=== PATIENT | female | born 1985 | race Caucasian/White ===

== ENCOUNTER 2018-09-07 16:29 | Inpatient (IN) | payer SELFPAY ==
[~2018-09-07 16:29] MED LIST: ISOVUE-370 76%-LOCM 1 ML ONE; KETAMINE 100 MG/ML (5ML VIAL) ONE
[2018-09-07] MEDS ORDERED: Adacel (T-DAP) 0.5 ML VIAL ONE (16:34)
[2018-09-07] MEDS ORDERED: CEFAZOLIN 1 GM VIAL ONE (16:34)
[2018-09-07] MEDS ORDERED: Adenosine 6 MG/2 ML VIAL ONE (16:37)
[2018-09-07] MEDS ORDERED: Succinylcholine Chloride 20 MG/ML 10 ml SYRINGE FS ONE (16:44)
[2018-09-07] MEDS ORDERED: Midazolam HCl 2 mg/2 ml Vial ONE (16:49)
[2018-09-07] MEDS ORDERED: fentaNYL Citrate/PF 2,000 MCG in Sodium Chloride 0.9% 60 ML IV SCH ×2 (16:50→18:16)
[2018-09-07] MEDS ORDERED: Fentanyl 100 MCG/2 ML VIAL ONE ×2 (16:51→17:14)
[2018-09-07 17:07] LABS: Bilirubin Negative (Negative); Blood, Urine Negative (Negative); Clarity CLEAR (Clear); Glucose, Urine (Dipstick) Negative (Negative); Leukocyte Negative (Negative); Nitrite Negative (Negative); Protein, Urine (Dipstick) Negative (Neg-Trace); Specific Gravity, Urine 1.024 (1.002-1.036); Urobilinogen 0.2 mg/dL (0.2-1.0); pH, Urine 5.5 (5.0-9.0)
[2018-09-07 17:10] LABS: Actual Bicarbonate (HCO3a) 12.7 mEq/L (22-28); Analyzer IN Cardio ER; Base Excess (BEa) -15.5 mEq/L (-2.0 to +3.0); CO2 Tension 37.8 mmHg (35.0-45.0); Carboxyhemoglobin (COHb) 0.5 gm% (0.0-3.0); Hemoglobin (Hb) 14.8 g/dL (12.0-16.0); Potassium - ABG Lab 4.28 mmol/L (3.70-5.30)
[2018-09-07 17:11] LABS: Pregnancy Test - Urine (BHCG) Negative (Negative); Pregu Control Background? CLEAR/WHITE (CLR/WHITE); Pregu Control Bar Appear? YES (CONTROL BAR); Specific Gravity 1.024 (1.002-1.036)
[2018-09-07 17:11] LABS: O2 Tension (PaO2) 555.6 mmHg (80.0-100.0); Puncture Site RFA; pH, Arterial 7.14 (7.35-7.45)
[2018-09-07] MEDS ORDERED: Piperacillin/Tazobactam 4.5 GM VIAL ONE (17:13)
[2018-09-07] MEDS ORDERED: Midazolam HCl 5 mg/ml Vial ONE (17:14)
[2018-09-07 17:16] LABS: Amphetamine Detected (NotDetected); Barbiturates Screen Not Detected (NotDetected); Benzodiazepine Screen Not Detected (NotDetected); Cocaine Metabolite Screen Not Detected (NotDetected); Medtox Control Line Valid? VALID (VALID); Medtox Reader # READER 4; Methadone Not Detected (NotDetected); Methamphetamine Detected (NotDetected); Opiate Screen Not Detected (NotDetected); Oxycodone Screen Not Detected (NotDetected); Phencyclidine (PCP) Not Detected (NotDetected); THC/Cannabinoid Screen Not Detected (NotDetected); Tricyclic Screen Not Detected (NotDetected)
[2018-09-07 17:26] LABS: INR-International Normal Ratio 1.2; Prothrombin Time 15.4 SEC (12.0-14.7)
[2018-09-07 17:27] LABS: PTT 34.5 SEC (22.9-36.1)
[2018-09-07 17:28] LABS: Hemoglobin 14.1 g/dL (12.0-16.0); Mean Corpuscular HGB CONC 32.4 g/dL (32.0-36.0); Mean Corpuscular Hemoglobin 30.1 pg (27.0-31.0); Mean Corpuscular Volume 92.9 fL (78.0-98.0); Mean Platelet Volume 8.6 fL (7.4-10.4); Platelet Count 302 thou/uL (130-400); RBC Distribution Width 12.7 % (11.5-14.5); Red Blood Cell (RBC) Count 4.69 mill/uL (4.20-5.40)
[2018-09-07] MEDS ORDERED: Norepinephrine 8 MG/0.9% NS 250 ML ONE (17:37)
[2018-09-07 17:38] LABS: ALT (SGPT) 24 U/L (8-55); AST (SGOT) 64 U/L (5-34); Albumin 3.7 g/dL (3.5-5.0); Alkaline Phosphatase 113 U/L (40-150); Anion Gap 22 mmol/L (10-20); BUN (Urea Nitrogen) 20 mg/dL (7.0-18.7); Bilirubin, Total 0.2 mg/dL (0.2-1.2); Calc. Creatinine Clearance 0 mL/min (70-130); Calcium 8.8 mg/dL (7.8-10.44); Carbon Dioxide 12 mmol/L (22-29); Chloride 108 mmol/L (98-107); Estimated GFR-MDRD 35; Globulin 2.9 g/dL (2.4-3.5); Glucose 246 mg/dL (70-105); Potassium 4.4 mmol/L (3.5-5.1); Protein, Total 6.6 g/dL (6.0-8.3); Sodium 138 mmol/L (136-145)
[2018-09-07] MEDS ORDERED: Sodium Bicarbonate 2.5 MEQ/5 ML VIAL ONE (17:40)
[2018-09-07] MEDS ORDERED: Calcium Chloride 1 GM/10 ML Abboject SYRINGE ONE (17:40)
[2018-09-07] MEDS ORDERED: Sodium Bicarb 50 MEQ/50 ML Abboject 8.4% SYRINGE ONE ×3 (17:41→17:42)
[2018-09-07 17:42] LABS: Actual Bicarbonate (HCO3a) 15.8 mEq/L (22-28); Analyzer IN Cardio ER; Base Excess (BEa) -12.1 mEq/L (-2.0 to +3.0); CO2 Tension 43.1 mmHg (35.0-45.0); Calcium, Ionized 1.19 mmol/L (1.12-1.30); Carboxyhemoglobin (COHb) 0.3 gm% (0.0-3.0); Hemoglobin (Hb) 13.9 g/dL (12.0-16.0); Potassium - ABG Lab 3.73 mmol/L (3.70-5.30)
[2018-09-07 17:43] LABS: O2 Tension (PaO2) 600.4 mmHg (80.0-100.0); Puncture Site RFA; pH, Arterial 7.18 (7.35-7.45)
[2018-09-07 17:44] LABS: ALV-art Gradient 58.725 (0-20)
[2018-09-07 17:50] LABS: Band 11 % (5-11); Eosinophils 2 % (0-10); Lymphocytes 14 % (21-51); MDiff Complete? YES; Metamyelocyte 3 % (0-0); Monocytes 3 % (0-10); Myelocyte 1 % (0-0); Neutrophil 66 % (42-75); PLT Morphology Comment Appears Adequate
[2018-09-07 17:52] LABS: Acetaminophen Less than 6.0 mcg/mL (10.0-30.0); Alcohol Less than 10 mg/dL (Less than 10); Salicylate Less than 8.0 mg/dL (15.0-30.0)
[2018-09-07] MEDS ORDERED: Dextrose 5% in Water 1,000 ML IV PRN (18:09)
[2018-09-07] MEDS ORDERED: Dextrose 50% Abboject 50 ML SYRINGE SLOW IVP PRN (18:09)
[2018-09-07] MEDS ORDERED: Ventilator Sedation Protocol 1 EACH FS ONE (18:14)
[2018-09-07] MEDS ORDERED: Propofol BOLUS 1,000 MG/100 ML VIAL IV PRN (18:16)
[2018-09-07] MEDS ORDERED: Fentanyl BOLUS 250 ML IVPB PRN (18:16)
[2018-09-07] MEDS ORDERED: DISCONTINUE PREVIOUS NARCOTIC PAIN MEDICATIONS AND BENZODIAZEPINES FS SCH (18:16)
[2018-09-07] MEDS ORDERED: Lorazepam 2 MG/ML VIAL SLOW IVP PRN (18:16)
[2018-09-07] MEDS ORDERED: Sodium Chloride 0.9% 50 ML ONE ×2 (18:19→18:41)
[2018-09-07] MEDS ORDERED: Heparin 5,000 UNITS/ML VIAL ONE (18:26)
[2018-09-07] MEDS ORDERED: Morphine 2 MG/ML SYRINGE SLOW IVP PRN (18:30)
[2018-09-07] MEDS ORDERED: Papaverine 60 MG/2 ML VIAL ONE (18:46)
[2018-09-07 18:47] LABS: Lactic Acid 12.4 mmol/L (0.5-2.2)
[2018-09-07] MEDS ORDERED: Sodium Chloride 0.9% 20 ML ONE (18:48)
--- NOTE | 2018-09-07 18:50 | RAD ---
ONE VIEW CHEST: 09/07/18 HISTORY: Patient was attacked by multiple dogs. COMPARISON: None. FINDINGS: Portable supine chest radiograph demonstrates an endotracheal tube just beyond the level of the clavi cles. There is a left sided central venous catheter with the distal tip projecting over the expected region of the superior vena cava. Normal cardiac silhouette. Pulmonary vessels and hilum are normal. Costophrenic angles are clear. Pulmonary vessels and hilum are normal. Costophrenic angles are clear. No definite consolidation or masses. No evidence of pneumothorax on the supine projection. However, there is evidence of subcu air along the right chest wall and right axilla. Possibility of pneumothor ax in the right lung cannot be excluded. IMPRESSION: 1. Lines and tubes as above. 2. Questionable right sided pneumothorax given the presence of subcutaneous emphysema in the rig ht hemithorax. POS: [facility]
[2018-09-07 19:08] LABS: Troponin I Less than 0.010 ng/mL (< 0.028)
[2018-09-07 19:12] LABS: CKMB 30.6 ng/mL (0-6.6)
--- NOTE | 2018-09-07 19:16 | RAD ---
TWO VIEWS OF THE RIGHT FOREARM 09/07/18 COMPARISON: None. HISTORY: Right forearm trauma with pain. FINDINGS: Two views of the right forearm shows a complex laceration involving the forearm. There is no underlyi ng fracture or dislocation. No significant radiopaque foreign body is seen. IMPRESSION: No evidence of acute osseous abnormality. POS: [facility]
[2018-09-07] MEDS ORDERED: Bacitracin Zinc Ointment 30 gm TUBE ONE (19:49)
--- NOTE | 2018-09-07 20:30 | CT ---
CHEST CT WITH CONTRAST ABDOMEN CT WITH CONTRAST PELVIC CT WITH CONTRAST CT ANGIOGRAM OF THE RIGHT UPPER EXTREMITY 09/07/18 HISTORY: Patient was bitten by multiple dogs. COMPARISON: None. TECHNIQUE: CT angiogram of the right upper extremity is performed in the axial plane. Three dimensional reformat florentino images are submitted for interpretation. Postcontrast chest, abdomen and pelvic CT were also performed. FINDINGS: There is an endotracheal tube terminating in the trachea. The nasogastric tube terminates in the left upper quadrant. Heart size is normal. No significant pericardial fluid. The thoracic and abdominal a delia have a normal caliber. No periaortic fat stranding. There are dependent atelectatic changes in the lung parenchyma. Trachea and central bronchi are paten t. No pneumothorax or osseous abnormalities. There is extensive subcutaneous air in the right hemithorax. ABDOMEN CT: There is appropriate arterial phase imaging of the liver, spleen, pancreas and adrenal glands. Symmet mike enhancement of the kidneys. No mesenteric mass, lymphadenopathy, free air or free fluid. No evidence of bowel obstruction. Normal caliber appendix. Unremarkable colon. PELVIC CT: The uterus and adnexal structures are unremarkable. Rodriguez catheter is noted in the urinary bladder. S mall amount of fluid in the right hemipelvis, likely physiologic. There is no posttraumatic change with regard to the bony thorax or bony pelvis. CT ANGIOGRAM: There is appropriate contrast opacification of the right subclavian artery, axillary artery and proxi mal most brachial artery. Subsequent evaluation of the mid to distal brachial artery as well as the r adial and ulnar artery is markedly limited due to timing of bolus, subcutaneous emphysema, soft tissu e swelling/hematoma, venous contamination and patient movement. There does appear to be some decreased and absent enhancement involving segments of the radial artery . Consider conventional angiography to better evaluate the entire right upper extremity arterial syst em. IMPRESSION: 1. No posttraumatic change in the abdomen or pelvis. 2. Extensive subcutaneous emphysema of the right chest and right upper extremity secondary to in jury and wounds. 3. Suboptimal right upper extremity arteriogram. Conventional angiography is recommended. 4. Results of the CT angiogram discussed with Dr. Siegel, 09/07/18 at 6:27 p.m. Code CR POS: [facility]
[2018-09-07] MEDS: Sodium Bicarbonate 150 MEQ in Dextrose 5% in Water 1,000 ML IV SCH (21:00)
[2018-09-07 21:49] LABS: Actual Bicarbonate (HCO3a) 22.9 mEq/L (22-28); Analyzer IN Cardio ER; Base Excess (BEa) -2.4 mEq/L (-2.0 to +3.0); CO2 Tension 41.5 mmHg (35.0-45.0); Calcium, Ionized 1.07 mmol/L (1.12-1.30); Carboxyhemoglobin (COHb) 0.3 gm% (0.0-3.0); Hemoglobin (Hb) 12.5 g/dL (12.0-16.0); O2 Tension (PaO2) 212.5 mmHg (80.0-100.0); Potassium - ABG Lab 3.02 mmol/L (3.70-5.30); pH, Arterial 7.36 (7.35-7.45)
--- NOTE | 2018-09-07 21:49 | HP ---
DATE OF ADMISSION: 09/07/2018 HISTORY OF PRESENT ILLNESS: A 33-year-old woman was mauled by pack of dogs this afternoon. The patient suffered multiple complex lacerations and puncture wounds. Apparently, at least one of the dogs was put down in order to extricate the patient from the scene. The patient was brought by ambulance to [facility] as a level 1 trauma activation. She was hypotensive and tachycardic. Blood products have been started in field and continued en route to the emergency department. The patient arrived with a Sobeida coma scale of E4 M6 V4. She was quite agitated and screaming in pain and difficulty to console. She had received some ketamine twice with minimal effect. Decision was made therefore to electively intubate the patient to manage her airway and facilitate timely workup. She does indeed have an extensive amount of injuries about her with profound blood loss and mid extensive soft tissue loss. Prior to intubation, we were able to garnish some history. PAST MEDICAL HISTORY: Pertinent for chronic supraventricular tachycardia. PAST SURGICAL HISTORY: She denies any invasive surgeries at bedside. She had some noninvasive surgery relating to her SVT, I suspect that was probably a cardioversion. SOCIAL HISTORY: She admits to heavy ethanol usage. She also admits to occasional use of marijuana. She indulges in illicit drugs including methamphetamine. FAMILY HISTORY: She denies any family history of diabetes mellitus, hypertension, heart disease or cancer. PREHOSPITAL MEDICATIONS: None. ALLERGIES: Patient denies any known drug allergies. REVIEW OF SYSTEMS: As stated in past medical history and chief complaint. PHYSICAL EXAMINATION: GENERAL: This reveals a 33-year-old woman who appears older than her stated age. She is otherwise in acute distress secondary to severe pain, especially with her right upper extremity. VITAL SIGNS: Initial vital signs include blood pressure 60/40, pulse is 144, respiratory rate is 33, oxygen saturation 97% on room air, pain rated at 10/10. The patient had received 2 units of O negative blood prior to arrival and a third unit of O negative blood was being transfused during this evaluation. HEENT: Examination reveals normocephalic and atraumatic. Pupils are equal, round, reactive to light and accommodation. She has multiple lacerations about her neck bilaterally with some puncture wounds. No active bleeding noted. Trachea is midline. There is no subcutaneous emphysema present. No carotid bruits were auscultated. Tympanic membranes are visualized. No hemotympanum is present. Midface stable. No gross deformities or step-offs are present. Chest wall is stable. HEART: Reveals regular rate with sinus tachycardia. No murmurs or gallops auscultated. LUNGS: Clear to auscultation bilaterally. Her breathing is regular and unlabored. ABDOMEN: Soft, nontender, nondistended. Liver and spleen are nonpalpable below costal margin. PELVIS: Stable. No gross deformities or step-offs are present. EXTREMITIES: Reveals thready, but palpable bilateral pedal and radial pulses. Patient had extensive amount of puncture wounds and lacerations about the left upper extremity and back. The right upper extremity includes very complex full thickness laceration involving the right antecubital fossa with extensive soft tissue loss. There is also a deep laceration to the right elbow extending to the distal humerus. The patient had scattered areas of abrasion involving both upper and lower extremities, back and both flank. She has multiple lacerations and puncture wounds involving the bilateral lower extremities. MUSCULOSKELETAL: Examination reveals 5/5 muscle strength in left upper and bilateral lower extremities. Range of motion about the right upper extremity was restricted due to painful deformities. Whereas the patient was able to move right upper arm, she was unable to use fingers. In fact, all the fingers were fixed in a flexure position. Cervical spine was nontender to palpation, active or passive range of motion. Thoracic and lumbar spine was nontender to palpation. Clearly there are no bony step-offs involving the cervical, thoracic or lumbar spine. LABORATORY DATA: Pertinent laboratory findings today includes CBC with 44,000 white blood cells, hemoglobin 14.1, hematocrit 43.6, platelet count is 302,000. Differential counts as follows, 66% segmented neutrophils, 11 bands, 14 lymphocytes, 3 monocytes and 2 eosinophils. PTT and INR noted at 34.5 seconds and 1.2 respectively. Metabolic profile: Sodium 138, potassium 4.4, chloride is 108, bicarbonate is 12, anion gap is 22, BUN is 20, creatinine is 1.71, glucose is 246, total bilirubin is 0.2, AST and ALT noted at 64 and 24 respectively. Serum cortisol level is 26.6. Urine toxicology screen is positive for amphetamines and methamphetamines. Arterial blood gas which was obtained immediately post-intubation is pertinent for pH 7.14, pCO2 38, pO2 556, oxygen saturation 99%, base excess negative 15.5, ionized calcium 1.20. IMPRESSION: 1. Multiple dog bite wounds. 2. Interval innumerable lacerations and puncture wounds involving the neck bilaterally, bilateral arm and legs, back and both flanks. 3. Complex right forearm antecubital fossa full thickness laceration with likely neurovascular injury. 4. Acute metabolic acidosis. 5. Acute kidney injury likely secondary to acute distributive shock and concomitant crush injury related to acute tubular necrosis. 6. Acute septic shock PLAN: 1. Consultation with orthopedic hand surgery as well as a Cardiovascular Surgery with regards to the right upper extremity complex injuries. 2. Patient will be taken to the operating room for washout and closure of multiple lacerations and puncture wounds. 3. Continue with aggressive fluid resuscitation. Monitoring the urinary output as endpoint of resuscitation. 4. Continue with full mechanical ventilator support until the patient is hemodynamically stable. Total critical care time is 85 minutes. MTDD
[2018-09-07 21:53] LABS: ALV-art Gradient 92.125 (0-20); Puncture Site LFA
--- NOTE | 2018-09-07 22:14 | CON ---
DATE OF CONSULTATION: 09/07/2018 REQUESTING PHYSICIAN: Fredo Taylor M.D. CHIEF COMPLAINT: Dog mauling. HISTORY OF PRESENT ILLNESS: The patient is a 33-year-old woman, intubated and resuscitated following a dog mauling. She has multiple bites on her extremities with extensive bites involving the right u pper extremity. It is possible to Doppler a pulse down to about the antecubital level where a very l arge wound was, but it was not possible to Doppler pulses beyond that. Dr. Taylor requested that I evaluate her with respect to possible vascular injury. Past medical history, family history, social history and review of systems are unobtainable. On exam, she is in the operating room intubated and under anesthesia. Her blood pressure has come up from the initial blood pressure in the 80s in the emergency room. She is covered with dried blood. She has multiple small puncture wounds involving all 4 extremities with extensive soft tissue defect going down to the bone on the volar aspect of the right forearm. I am not able to palpate radial pu lses. I am able to palpate dorsalis pedis pulses. CT angiography does not clearly demonstrate it, but would appear to show intact vasculature in spasm. IMPRESSION AND RECOMMENDATIONS: Extensive penetrating trauma from a dog mauling. Certainly at risk for vascular injury. I will explore the brachial vessels with Dr. Taylor during his exploration of the wound.
[2018-09-07] MEDS ORDERED: Calcium Chloride 1 GM/10 ML Abboject SYRINGE IVP SCH (22:15)
[2018-09-07] MEDS: Ondansetron PF 4 MG/2 ML Vial IVP PRN (22:32)
[2018-09-07] MEDS: Propofol 1,000 MG/100 ML VIAL IV PRN (23:00)
[2018-09-08] MEDS: Piperacillin/Tazobactam 4.5 GM in Sodium Chloride 0.9% 100 ML IVPB SCH ×4 (00:03→18:50)
[2018-09-08] MEDS: Oxazepam 10 MG CAP PO SCH ×2 (00:12→05:13)
[2018-09-08] MEDS: Insulin Regular 300 UNITS/3 ML VIAL SC PRN ×3 (00:35→17:10)
--- NOTE | 2018-09-08 01:27 | OP ---
DATE OF PROCEDURE: 09/07/2018 PROCEDURE PERFORMED: Right antecubital exploration of the brachial artery. PREOPERATIVE DIAGNOSIS: Extensive bite wounds to the right upper extremity, status post dog mauling. POSTOPERATIVE DIAGNOSIS: Extensive bite wounds to the right upper extremity, status post dog mauling . SURGEON: Dr. Blue. DRAPERY HANGER: Fredo Taylor MD ANESTHESIA: General endotracheal anesthesia. INDICATIONS: The patient is a 33-year-old woman attacked by dogs with multiple bite wounds with exte nsive wounds involving right upper extremity including deep extensive wounds at the antecubital and m id forearm level with an inability to identify pulses at the wrist or hand. FINDINGS: No apparent injury to the distal brachial or proximal or mid radial or ulnar arteries. NARRATIVE REPORT: The patient was transported emergently to the operating room and placed in supine position on the operating table. Additional examination was undertaken of the anesthetized patient b efore prepping and draping her extremities. Dr. Taylor and I explored the right antecubital wound. Very small tubular structure was encountered that at first, I thought represented an antecubital ve in, although it seemed too deep to represent that. This was followed proximally using combination of sharp and blunt dissection, it could be appreciated that this was the exposed brachial artery within the external caliber of only about 2.5 or 3 mm in diameter overlying it were still attached pr oximally. The brachial artery clearly had a pulse. There was no visible bleeding from it as one wit h distally, the pulse was more red was appreciated, although somewhat faint. The radial and ulnar ar teries were exposed in the process of debriding devitalized muscle. There was no bleeding coming fro m those vessels. A papaverine soaked sponge was applied to the wound while other wounds were explore d, debrided and irrigated. Attention was returned to the brachial artery and the branch vessels had easily palpable pulses in it. A faint radial pulse could be identified with Doppler at the wrist and when a 22 gauge needle was used to josefa each of the fingertips, they bled appropriately.
--- NOTE | 2018-09-08 01:30 | OP ---
DATE OF PROCEDURE: 09/07/2018 PREOPERATIVE DIAGNOSIS: Multiple dog bites in upper and lower extremities and facial. POSTOPERATIVE DIAGNOSIS: Multiple dog bites in upper and lower extremities and facial. PROCEDURE: Closure of multiple last debridement, wound washout, pulse irrigation and debridement of fatty tissue, layered closures and superficial closures of multiple lacerations, left and right lower extremity, left upper extremity and facial (Dr. Taylor performed washout and closure evaluations r ight upper extremity lacerations severe upper extremity injury). Left leg lacerations total 29 cm, l eft arm 53 cm, right leg 25 cm, facial 23 cm total lacerations. Note, deep laceration left preauricu lar down to the masseter, otherwise facial submental lacerations and into the subcu, submental lacera tion deeper. Deep lacerations left upper extremity laterally. Bilateral lower extremities down deep to the fascia, but not a vascular territory. General anesthesia. Blood transfused 2 units. DESCRIPTION OF PROCEDURE: The patient taken to the operating room where under general anesthesia, Dr Holden Taylor is taken to OR and Sighaileyhorst evaluated the right upper extremity while worked on the lef t lower extremity, right lower extremity, left upper extremity and facial. I began in the left upper extremity while she was cleansing the wound, prepping this with Betadine and draping in the routine fashion. Pulse irrigation used to rinse all irrigations in upper arm and forearm. Once these was th oroughly irrigated, some of the larger lacerations were debrided fatty tissue, devitalized tissue and then subcutaneous tissues of the large lacerations deep or approximated with interrupted subdermal 4 -0 Monocryl and then all skin incisions approximated with niko. I then turned my attention to kurt kenny in the left lower extremity and prepared that with Betadine and draped in routine fashion. Th joe multiple lacerations above and below the knee anterior and posterior were pulse irrigated and als o devitalized subcutaneous tissue debrided sharply, skin debrided sharply. Hemostasis gained with th e cautery. Pulse irrigation used to thoroughly irrigate all wounds and all wounds approximated by ap proximating the deeper wounds with interrupted sutures of 4-0 Monocryl and skin with niko. I then turned my attention to the right lower extremity where likewise devitalized subcutaneous tissue and skin debrided sharply. Pulse irrigation performed thoroughly and subcutaneous tissues with 3-0 Monoc ryl used to close the deeper lacerations and niko used to close all lacerations. I then turned my attention to the face, most of her problems are with left face There is a complex m ultiple lacerations preauricular left infraorbital, eyelid, left facial and submental these were all pulse irrigated after gently cleaning with Betadine. The eyelid laceration, of course, was not pulse irrigated, above was cleansed with Betadine and then the infraorbital laceration closed with continu ous suture of 6-0 Prolene, approximating the skin. The preauricular area was deep down masseter, thi s was debrided and devitalized subcutaneous tissue. Hemostasis gained with the cautery. Fascia appr oximated with 3-0 Monocryl. Subcutaneous tissue closed with 3-0 Monocryl. Skin approximated with 6- 0 Prolene. Submental laceration was likewise debrided and approximated with 6-0 Prolene. The patien t tolerated the procedure well. Sterile dressings applied. Antibiotic ointment applied to the facia l lacerations.
[2018-09-08] MEDS: Sodium Bicarbonate 150 MEQ in Dextrose 5% in Water 1,000 ML IV SCH ×2 (01:42→10:27)
[2018-09-08 04:53] LABS: Lactic Acid 3.2 mmol/L (0.5-2.2)
[2018-09-08 05:07] LABS: ALT (SGPT) 50 U/L (8-55); AST (SGOT) 177 U/L (5-34); Albumin 2.8 g/dL (3.5-5.0); Alkaline Phosphatase 50 U/L (40-150); Anion Gap 9 mmol/L (10-20); BUN (Urea Nitrogen) 23 mg/dL (7.0-18.7); Bilirubin, Total 0.6 mg/dL (0.2-1.2); Calc. Creatinine Clearance 72 mL/min (70-130); Calcium 8.7 mg/dL (7.8-10.44); Carbon Dioxide 31 mmol/L (22-29); Chloride 105 mmol/L (98-107); Estimated GFR-MDRD 56; Globulin 1.9 g/dL (2.4-3.5); Glucose 174 mg/dL (70-105); Potassium 3.3 mmol/L (3.5-5.1); Protein, Total 4.7 g/dL (6.0-8.3); Sodium 142 mmol/L (136-145)
[2018-09-08] MEDS: Propofol 1,000 MG/100 ML VIAL IV PRN (05:13)
[2018-09-08 06:10] LABS: CK (CPK) 9013 U/L (29-168)
[2018-09-08 06:39] LABS: Actual Bicarbonate (HCO3a) 28.6 mEq/L (22-28); Analyzer IN Cardio ER; Base Excess (BEa) 5.2 mEq/L (-2.0 to +3.0); CO2 Tension 37.4 mmHg (35.0-45.0); Calcium, Ionized 1.08 mmol/L (1.12-1.30); Carboxyhemoglobin (COHb) 0.3 gm% (0.0-3.0); Hemoglobin (Hb) 11.6 g/dL (12.0-16.0); O2 Tension (PaO2) 141.8 mmHg (80.0-100.0); Potassium - ABG Lab 3.33 mmol/L (3.70-5.30)
[2018-09-08 06:44] LABS: Puncture Site LF
[2018-09-08] MEDS ORDERED: Potassium Chloride 30 MEQ in Premix Bag 1 BAG IVPB SCH (06:45)
[2018-09-08 06:57] LABS: Hemoglobin 11.4 g/dL (12.0-16.0); Mean Corpuscular HGB CONC 32.8 g/dL (32.0-36.0); Mean Corpuscular Hemoglobin 29.5 pg (27.0-31.0); Mean Corpuscular Volume 89.7 fL (78.0-98.0); Mean Platelet Volume 9.1 fL (7.4-10.4); Platelet Count 140 thou/uL (130-400); Red Blood Cell (RBC) Count 3.88 mill/uL (4.20-5.40); White Blood Cell (WBC) Count 12.1 thou/uL (4.8-10.8)
[2018-09-08] MEDS ORDERED: Potassium Chloride 30 MEQ, Admixture Fee 1 EACH in Sodium Chloride 0.9% 250 ML 250 ML IV SCH (07:00)
[2018-09-08 08:26] LABS: Band 27 % (5-11); Lymphocytes 8 % (21-51); MDiff Complete? YES; Monocytes 4 % (0-10); Neutrophil 60 % (42-75); PLT Morphology Comment Appears Adequate; Reactive Lymphocytes 1 % (0-10)
[2018-09-08] MEDS: Folic Acid 1 MG TAB PO SCH (09:29)
[2018-09-08] MEDS: Enoxaparin Sodium 40 MG/0.4 ML SYRINGE SC SCH ×2 (09:31→11:38)
[2018-09-08] MEDS ORDERED: Acetaminophen 500 MG TAB PO PRN (09:44)
[2018-09-08] MEDS ORDERED: Naloxone HCl 0.4 mg/ml Vial IV PRN (09:46)
[2018-09-08] MEDS ORDERED: diphenhydrAMINE 50 MG/ML VIAL IVP PRN (09:46)
[2018-09-08] MEDS ORDERED: diphenhydrAMINE 25 MG CAP PO PRN (09:46)
[2018-09-08] MEDS ORDERED: diphenhydrAMINE 50 MG/ML VIAL IM PRN (09:46)
[2018-09-08] MEDS ORDERED: Communication Order-Pharmacy FS SCH (10:00)
[2018-09-08] MEDS: Ketorolac Tromethamine 30 MG/ML VIAL IVP SCH ×3 (11:25→23:40)
[2018-09-08] MEDS ORDERED: PROPOFOL 200 MG/20 ML VIAL ONE (11:29)
[2018-09-08] MEDS ORDERED: ePHEDrine/0.9% NaCl/PF SYRINGE 50 mg/10 ml ONE (11:29)
[2018-09-08] MEDS ORDERED: PHENYLEPHRINE-NS 100 MCG/ML 10 ML SYRINGE ONE (11:29)
[2018-09-08] MEDS ORDERED: Succinylcholine Chloride 20 MG/ML 10 ml SYRINGE FS ONE (11:29)
[2018-09-08] MEDS ORDERED: Calcium Chloride 1 GM/10 ML Abboject SYRINGE ONE (11:29)
[2018-09-08] MEDS ORDERED: Lidocaine 1% PF 5 ML VIAL ONE (11:29)
--- NOTE | 2018-09-08 11:38 | OP ---
DATE OF SURGERY: 09/07/2018 PREOPERATIVE DIAGNOSES: 1. Right forearm deep and right arm submuscular multiple dog bite wounds. 2. Vascular compromise with diminished to absent radial pulse. 3. Marked amount of devitalized wound with the dorsal wound showing dirt contamination and the xavier r wound showing primarily devascularization. Exposed bone was seen, but no fracture throughout prima ry injury zone, which was greatest in the palmar aspect from the antecubital fossa to approximately 5 cm distal to the radial artery and ulnar artery bifurcation. This surgery performed, then right for earm debridement deep down to the antecubital bone to right median and ulnar nerve neuroplasty. 4. Right arm debridement. 5. Pulse irrigation 10 liters with 50,000 units of bacitracin per liter of antibiotics. almos t 15 mL of total devitalized muscle from the forearm and approximately 2 mL from the arm. ESTIMATED BLOOD LOSS: 150 mL. TOURNIQUET TIME: None. ANESTHESIA: General endotracheal anesthesia. INDICATIONS: The patient came in as level 1 trauma to our hospital reportedly from the [place] [address] region in [place]. reported that she was bitten by multiple dogs traveling in a al ck, was evacuated by helicopter, and after evaluation with Dr. Siegel of the general surgery trauma te am director, the patient had evidence of large amount of open devitalized wounds, so we consulted alan walker surgeon. I evaluated her and saw that she had a clenched fist on the right side, where she had jazmine mendous amount of damage to the palmar and dorsal radial aspect of the forearm and the posterior aspe ct of the arm. Her digits were completely flexed. She says she had also dog bite wounds on the left upper extremity, both lower extremities, and face. These were managed by General Surgery and General Surgery Trauma and I did not examine or treat them . She then went to the operating room with no family to consent, as an emergency consent patient. DESCRIPTION OF PROCEDURE: As part of a 4 prep and drape scene, along with the vascular surgeon who I called because the patient had no Doppler pulse, but did have trace pulse on the CTA. Once the [facility] t upper extremity was prepped and draped, I then extended the most proximal aspect of the transverse antecubital fossa procedure medially and then directly anteriorly for 10 cm to allow visualization of the brachial artery prior to this bifurcation. Then, it was easy to discern it distally as some of the muscle devitalized. The surface was gone, it was clear that the patient had lost a marked amount of muscle mass and some exposed tendons from the palmar aspect including palmaris longus, flexor car pal ulnaris, flexor carpi radialis, and flexor digitorum superficialis and deep. We thus extended th e incision palmar and dorsal, especially with dorsal and radial wrist at the ulnar base of the radial nerve posterior interosseous area and began to individually inspect the muscles. We found devitaliz ed muscle from extensor carpi radialis longus and brevis just distal to their origin, the first and s econd dorsal compartment muscles and extensor pollicis longus through the dorsal incision where we ex tended. Through palmar incision, we were able to dissect completely the median nerve and ulnar nerve neuroplasty and we found that the flexor carpi ulnaris, flexor carpi radialis, flexor pollicis longu s, flexor digitorum superficialis, all had muscle belly damage and at least 1-2 tendons detached, so these were excised and debrided until we reached what appeared to be viable contractile muscles witho ut the tourniquet deflated. We obtained hemostasis. Then, we made our first irrigation after all th joe debridements were completed using the following techniques: 1. Excisional. 2. Depth was down to not including bone, we saw no teeth reina in the bone and no radiograph abnorma lity. 3. The instruments used include nearly everything on the set but highlighted would be 11-blade knife , [place] blade, [place], aponte elevator, tenotomy scissors, DeBakey scissors, and the patient then had the irrigation done when all the nonviable muscle was gone. A total of 10 liters were given, 5 i nitially and then once we finished debridement in the arm where we packed the wound with normal salin e-soaked sterile gauze, another 5 were given at primary forearm level. Vascular surgeon finished exploration of the brachial arteries bifurcation into the ulna more proxima l and radial more distal, and then I followed this down to the anterior interosseous where we had a b leeder from a branch which we covered with a Ligaclip. Then, we noticed that the radial pulse have r eturned out to the level of the closure of the incision, which I made and here it began to diminish e renata on the Doppler, but this was well passed 5 cm distal to the most proximal aspect of the actual do g bite wound. Thus with pink fingers and this time, we felt there was at least some nerve circulatio n at this time and we prepared the patient for wound coverage without closure. We elected not to use a VAC dressing, because there was too much neurovascular bundle exposed, especially artery and tenuo us situation. We also covered the wound with normal saline soaked gauze, dry gauze, ABDs, Kerlix, an d kept at 90 degrees because it was here that we actually felt more often than not, a pulse. Once the dressing was applied, we placed a well measured and appropriate sugar-tong splint with the e lbow in neutral and the patient left the operating room without evidence of anesthetic or operative c omplications.
[2018-09-08] MEDS: HYDROmorphone 10 mg/100 ml CADD IVPB PRN (11:46)
[2018-09-08] MEDS ORDERED: Ketorolac Tromethamine 10 MG TAB PO SCH (12:00)
[2018-09-08] MEDS: Ondansetron PF 4 MG/2 ML Vial IVP PRN (15:03)
[2018-09-08] MEDS: Dextrose 5 %-0.45 % NaCl 1,000 ML IV SCH ×2 (15:35→23:47)
[2018-09-08] MEDS: Promethazine HCl 25 MG/ML VIAL IM PRN (15:43)
--- NOTE | 2018-09-08 16:23 | PRG ---
DATE OF SERVICE: 09/08/2018 HISTORY: A 33-year-old woman who was mauled by a pack of dogs yesterday, suffered multiple bite wounds. She is postoperative day #1, status post excisional debridement and repair of the multiple bite wounds. SUBJECTIVE: This morning, she is on full mechanical ventilator support. She has required aggressive resuscitation overnight. She presented with severe lactic acidosis. When sedation was decreased, the patient moved all extremities and followed commands with a Douglas coma scale of 11T. OBJECTIVE: VITAL SIGNS: This morning, on no vasopressor support was noted at 101/65, pulse 111, respiratory rate 14, temperature 99.7 degrees Fahrenheit, oxygen saturation 100% on FIO2 of 40%. HEENT: Pupils equal, round, and reactive to light bilaterally. HEART: Reveals a regular rate with sinus tachycardia. No murmurs or gallops auscultated. LUNGS: Clear to auscultation bilaterally. Breathing is regular and unlabored. ABDOMEN: Soft, nontender, nondistended. Bowel sounds in all 4 quadrants are normoactive. EXTREMITIES: Reveals 2+ left radial and bilateral pedal pulses present. Right radial pulses present by Doppler. NEUROLOGIC: Reveals no focal deficits present. LABORATORY FINDINGS: Today includes a CBC with 12,100 white blood cells in contrast to 44,000 yesterday. Hemoglobin and hematocrit are stable at 11.4 and 34.8 respectively. Platelet count is 140,000. Differential counts as follows: 60% segmented neutrophils, 27 bands, 8 lymphocytes, and 4 monocytes. Arterial blood gas today pH 7.50, pCO2 of 37, pO2 142, base excess is 5.2. Ionized calcium is 1.08. Metabolic Profile: Sodium 142, potassium is 3.3, chloride is 105, bicarbonate is 31, BUN is 23, creatinine is 1.13, glucose is 174. Lactic acid is 3.2. This is in contrast to 12.4 yesterday. CPK is 9013, this is in contrast to 2734 yesterday. IMPRESSION: 1. Post-injury day #1, status post multiple dog bite wounds. 2. Significantly resolving acute lactic acidosis. 4. Acute posttraumatic respiratory failure, improving. 5. Acute hypokalemia. 6. Resolving acute kidney injury. 7. Stable crush injury with rhabdomyolysis PLAN: 1. The patient was weaned and successfully extubated. 2. Correct abnormal electrolytes. 3. Initiate physical and occupational therapy. 4. We will discontinue bicarbonate infusion but continue with IV fluids, monitor urinary output as point of resuscitation. This patient is still at risk for ongoing rhabdomyolysis secondary to crush injury from this multiple bite wounds as there might still be some residual devitalized muscle present. 5. We will continue with broad spectrum antibiotic therapy. 6. The patient is likely to return to the operating room within the next 24 hours for further evaluation. Above findings and plan discussed with the patient who indicates understanding of information given. I have answered her questions Total critical care time is 45 minutes. MTDD
[2018-09-08] MEDS ORDERED: Lidocaine 1% (PF) 30 ML VIAL ONE (20:14)
[2018-09-08] MEDS ORDERED: Bacitracin Zinc Ointment 30 gm TUBE ONE (20:14)
[2018-09-08] MEDS ORDERED: Sodium Chloride 0.9% 50 ML ONE (20:15)
[2018-09-08] MEDS ORDERED: Fentanyl 100 MCG/2 ML VIAL ONE (21:15)
[2018-09-08] MEDS ORDERED: Promethazine HCl 25 MG/ML VIAL IM PRN (22:51)
[2018-09-08] MEDS ORDERED: Ondansetron HCl/PF 4 MG/2 ML Vial IVP PRN (22:51)
[2018-09-08] MEDS ORDERED: Promethazine HCl 25 MG/ML VIAL SLOW IVP PRN (22:51)
[2018-09-09] MEDS: Piperacillin/Tazobactam 4.5 GM in Sodium Chloride 0.9% 100 ML IVPB SCH ×4 (00:45→19:06)
[2018-09-09 04:13] LABS: Band 18 % (5-11); Eosinophils 2 % (0-10); Hemoglobin 7.7 g/dL (12.0-16.0); Lymphocytes 17 % (21-51); MDiff Complete? YES; Mean Corpuscular Hemoglobin 30.3 pg (27.0-31.0); Mean Corpuscular Volume 91.9 fL (78.0-98.0); Mean Platelet Volume 8.8 fL (7.4-10.4); Monocytes 1 % (0-10); Neutrophil 62 % (42-75); PLT Morphology Comment Appears Decreased; Platelet Count 87 thou/uL (130-400); Red Blood Cell (RBC) Count 2.54 mill/uL (4.20-5.40); White Blood Cell (WBC) Count 11.3 thou/uL (4.8-10.8)
[2018-09-09 04:23] LABS: Lactic Acid 2.7 mmol/L (0.5-2.2)
[2018-09-09 04:25] LABS: ALT (SGPT) 173 U/L (8-55); AST (SGOT) 289 U/L (5-34); Albumin 2.4 g/dL (3.5-5.0); Alkaline Phosphatase 44 U/L (40-150); Anion Gap 9 mmol/L (10-20); BUN (Urea Nitrogen) 18 mg/dL (7.0-18.7); Bilirubin, Total 0.8 mg/dL (0.2-1.2); Calc. Creatinine Clearance 82 mL/min (70-130); Calcium 7.4 mg/dL (7.8-10.44); Carbon Dioxide 33 mmol/L (22-29); Chloride 99 mmol/L (98-107); Estimated GFR-MDRD 65; Globulin 1.7 g/dL (2.4-3.5); Glucose 131 mg/dL (70-105); Potassium 3.3 mmol/L (3.5-5.1); Protein, Total 4.1 g/dL (6.0-8.3); Sodium 138 mmol/L (136-145)
[2018-09-09 04:51] LABS: CK (CPK) 9617 U/L (29-168)
[2018-09-09] MEDS: Ondansetron PF 4 MG/2 ML Vial IVP PRN ×2 (05:24→12:17)
[2018-09-09] MEDS: Ketorolac Tromethamine 30 MG/ML VIAL IVP SCH ×3 (05:26→19:06)
[2018-09-09] MEDS: HYDROmorphone 10 mg/100 ml CADD IVPB PRN ×2 (08:18→18:15)
[2018-09-09] MEDS: Zinc Sulfate 220 MG CAP PO SCH (08:52)
[2018-09-09] MEDS: Folic Acid 1 MG TAB PO SCH (08:52)
[2018-09-09] MEDS: Dextrose 5 %-0.45 % NaCl 1,000 ML IV SCH ×2 (08:52→19:02)
[2018-09-09] MEDS: Promethazine HCl 25 MG/ML VIAL IM PRN (08:56)
[2018-09-09] MEDS ORDERED: Ascorbic Acid 500 mg Chewable Tablet PO SCH (09:00)
[2018-09-09] MEDS: Polyethylene Glycol 3350 17 GM Packet PO SCH (09:08)
[2018-09-09] MEDS: Enoxaparin Sodium 40 MG/0.4 ML SYRINGE SC SCH (09:08)
[2018-09-09] MEDS: Senokot 8.6 MG TAB PO SCH ×2 (09:08→21:59)
--- NOTE | 2018-09-09 09:17 | OP ---
DATE OF PROCEDURE: 09/08/2018 SURGEON: Fredo Taylor M.D. ANESTHESIA: Welsh Anesthesia. COMPLICATIONS: None. ESTIMATED BLOOD LOSS: 50 mL. SPECIMEN: 30 mL of muscle, skin, and fat after debridement. PREOPERATIVE DIAGNOSES: 1. Open wound forearm masses. 2. Open wounds, multiple, 2 cm and 3 cm wound on the arm. POSTOPERATIVE DIAGNOSES: 1. Open wound forearm masses. 2. Open wounds, multiple, 2 cm and 3 cm wound on the arm. 3. No gross infection found. PROCEDURES PERFORMED: 1. Doppler pulse examination intraoperative under general anesthesia x2. 2. Debridement of skin, muscle, and fascia and fat down to, but not including the bone over 30 squar e cm of wound. 3. Dressing change on anesthesia. TOURNIQUET TIME: None. INDICATIONS FOR PROCEDURE: The patient to have a stage wound management now approximately 35 hours s cristopher dog bite which left her multiple wounds at all other extremities with massive loss of muscle, sk in, down to, but not including bone and spared grossly of the vascular tree, antebrachial to ulnar an d radial arteries and the median and ulnar nerves, but so much muscle contamination and damage that w lainey felt the need to have a second-look procedure with 24 to 36 hours, so she returned to the operating room for that tonight. DESCRIPTION OF PROCEDURE: After successful general LMA technique, the limb was prepped and draped. She was come from the ICU already extubated. We then removed the dressings, she underwent standard p rep and drape and once timeout was done and recorded, we began the procedure. First, we lifted up al l wound flaps and removed all the wet-to-dry dressings prior to prepping. Then, we noted a palpable radial pulse, which is excellent. We pulled back all the layers and skin flaps, began by debriding e specially volar, radial and volar ulnar spread the neurovascular bundles, but removing all fat. Woun d edge necrosis, deep muscle and subfascial necrosis and any evidence of possible hematoma formation grossly with tenotomy scissors, Adson's, curette, and an excisional technique, which yielded no infec florentino material with the 30 mL of the muscle as listed above. We then performed the same procedure with the dorsal ulnar and dorsal radial of proximal forearm, the arm six different surgical wounds that were expanded dog bite wounds, and then perform irrigation of 4 liters of normal saline, Pulsavac pressure into large open forearm wounds and then 1 liter divided equally amongst the 4 smaller wounds in the arm. We packed all with gently packed normal saline soa ked 4 x 4s, covered with first layer of dry 4 x 4s and covered with a couple layers of Kerlix, and co fadia that with ABDs and then two more Kerlix. At that point, we checked the pulse again it was stil l excellent via Doppler at the radial site. We finally placed the final bulky dressing portions on, leaving the spot for doppler plethysmography recordings visible, gentle Kerlix was applied and cast padding and then we placed a long arm splint w ith the wrist in neutral position, but palmar flexed was the arm and face. The patient then had the long-arm splint applied and left the operating room without evidence of anesthetic or operative compl ication.
[2018-09-09] MEDS ORDERED: Potassium Phosphate 30 MMOL in Sodium Chloride 0.9% 500 ML IVPB SCH (11:00)
[2018-09-09] MEDS ORDERED: SODIUM CHLORIDE 0.9% IVPB SCH (11:00)
[2018-09-09] MEDS ORDERED: MAGNESIUM SULFATE IVPB SCH (11:00)
[2018-09-09] MEDS ORDERED: POTASSIUM PHOSPHATE IVPB SCH (11:00)
--- NOTE | 2018-09-09 11:17 | PRG ---
DATE OF SERVICE: 09/09/2018 SUBJECTIVE: Ms. Pina is a 33-year-old woman who is post-injury day #2 status post multiple bite woun ds by a pack a dogs. The patient is awake and alert today. She reports adequate pain control. OBJECTIVE: VITAL SIGNS: Today includes blood pressure 134/89, pulse 109, respiratory rate is 25, temperature 97 .9 degrees Fahrenheit, oxygen saturation is 98% on room air. HEART: Reveals regular rate with sinus tachycardia. No murmurs or gallops auscultated. CHEST: Clear to auscultation bilaterally. Breathing is regular and unlabored. ABDOMEN: Soft, nontender, nondistended. EXTREMITIES: Reveals 2+ radial and pedal pulses bilaterally. No ankle edema is present. Wounds ins pected. There is active drainage from the right forearm wound, which is mobilizing in dressing. NEUROLOGIC: Reveals no focal deficits present. LABORATORY DATA: Today includes CBC with 11,300 white blood cells, hemoglobin and hematocrit 7.7 and 23.3 respectively. Platelet count is 87,000. Metabolic profile: Sodium 138, potassium is 3.3, chl oride is 99, bicarbonate is 33, BUN 18, creatinine 0.99, glucose 131, lactic acid today is 2.7. Magn esium is 1.6. IMPRESSION: 1. Post-injury day #2 status post multiple dog bite wounds. 2. Resolving acute lactic acidosis. 3. Resolved acute kidney injury. 4. Acute hypokalemia. 5. Acute hypomagnesemia. PLAN: Correct abnormal electrolytes. We will initiate some oral analgesics and try to wean off the MICRO COMPUTER SPECIALIST. Initiate physical and occupational therapy. The patient is hemodynamically stable for transfer to a general surgical floor. Above findings and plan discussed with the patient indicates understan ding of information given. We will saline lock and discontinue Rodriguez catheter.
[2018-09-09] MEDS: traMADol HCl 50 MG TAB PO SCH ×3 (12:12→22:01)
[2018-09-09] MEDS: Acetaminophen 500 MG TAB PO SCH ×3 (12:13→22:01)
[2018-09-09] MEDS: Insulin Regular 300 UNITS/3 ML VIAL SC PRN (12:55)
[2018-09-09] MEDS: Gabapentin 300 MG CAP PO SCH ×2 (14:28→21:59)
[2018-09-09] MEDS: Ferrous Sulfate 325 MG TAB PO SCH (19:09)
[2018-09-09] MEDS ORDERED: Clindamycin/D5W 900 MG in Premix Bag 1 BAG IVPB SCH (20:00)
[2018-09-09] MEDS: Ascorbic Acid 500 mg Chewable Tablet PO SCH (21:59)
[2018-09-10] MEDS: Ketorolac Tromethamine 30 MG/ML VIAL IVP SCH ×3 (00:53→12:26)
[2018-09-10] MEDS: Piperacillin/Tazobactam 4.5 GM in Sodium Chloride 0.9% 100 ML IVPB SCH ×3 (00:53→12:26)
[2018-09-10] MEDS: Dextrose 5 %-0.45 % NaCl 1,000 ML IV SCH ×3 (00:54→17:26)
[2018-09-10] MEDS: Ondansetron PF 4 MG/2 ML Vial IVP PRN (02:46)
[2018-09-10] MEDS: traMADol HCl 50 MG TAB PO SCH ×3 (06:38→17:26)
[2018-09-10] MEDS: Acetaminophen 500 MG TAB PO SCH ×3 (06:38→17:26)
--- NOTE | 2018-09-10 10:19 | PRG ---
DATE OF SERVICE: 09/10/2018 SUBJECTIVE: The patient is currently on the surgical floor. She is hospital day #3 status post mult iple bites from a pack of dogs. She has undergone her initial irrigation debridement, and is planned for another procedure today with Orthopedics. Overnight, she has had no issues. She states her deonte n is controlled, although she is very hungry this morning. PHYSICAL EXAMINATION: VITAL SIGNS: Temperature is 98.0, heart rate 89, blood pressure 122/76, respirations 18, oxygen satu ration 98% on room air. GENERAL: The patient is resting comfortably in bed. She is awake, alert, and oriented x3. [place] coma scale is 15. HEENT: Multiple abrasions, otherwise unchanged. LUNGS: Clear to auscultation with good inspiratory and expiratory effort. HEART: Regular rate and rhythm. ABDOMEN: Soft, flat, nontender with active bowel sounds. EXTREMITIES: Neurovascularly intact x4. Dressings are clean, dry, and intact. LABORATORY DATA: There are no labs this morning. We do plan on drawing labs postoperatively. There are no radiographs to review this morning. ASSESSMENT AND PLAN: 1. Status post multiple dog bites. 2. Resolving acute kidney injury. 3. Resolving acute lactic acidosis. Plan will be to continue the patient n.p.o. until her surgery. Postoperatively, we will resume physi duncan and occupational therapy. Check her labs and switch her to p.o. pain medication. The evaluation and examination were done with Dr. Siegel this morning during rounds.
[2018-09-10] MEDS: Enoxaparin Sodium 40 MG/0.4 ML SYRINGE SC SCH (11:57)
[2018-09-10] MEDS: Ferrous Sulfate 325 MG TAB PO SCH ×2 (11:57→17:26)
[2018-09-10] MEDS: Gabapentin 300 MG CAP PO SCH ×2 (11:57→17:25)
[2018-09-10] MEDS: Ascorbic Acid 500 mg Chewable Tablet PO SCH (11:57)
[2018-09-10] MEDS: Folic Acid 1 MG TAB PO SCH (11:57)
[2018-09-10] MEDS: Polyethylene Glycol 3350 17 GM Packet PO SCH (11:58)
[2018-09-10] MEDS: Zinc Sulfate 220 MG CAP PO SCH (11:58)
[2018-09-10] MEDS: Senokot 8.6 MG TAB PO SCH (11:58)
[2018-09-10] MEDS ORDERED: PROPOFOL 200 MG/20 ML VIAL ONE (14:30)
[2018-09-10] MEDS ORDERED: Lidocaine 1% PF 5 ML VIAL ONE (14:30)
[2018-09-10] MEDS ORDERED: Ondansetron PF 4 MG/2 ML Vial ONE ×2 (14:30→22:36)
[2018-09-10] MEDS ORDERED: Bacitracin Zinc Ointment 30 gm TUBE ONE ×2 (18:15→21:25)
[2018-09-10] MEDS ORDERED: Betamet Acet/Betamet Na Ph 30 MG/5 ML VIAL ONE (18:15)
[2018-09-10] MEDS ORDERED: Bupivacaine PF 0.5% 30 ML VIAL ONE (18:15)
[2018-09-10] MEDS ORDERED: Fentanyl 100 MCG/2 ML VIAL ONE ×3 (18:23→23:00)
[2018-09-10] MEDS ORDERED: Midazolam HCl 2 mg/2 ml Vial ONE (18:23)
[2018-09-10] MEDS ORDERED: Thrombin 5000 UNITS/5 ML VIAL ONE ×3 (18:38→20:08)
[2018-09-10] MEDS ORDERED: Sodium Chloride 0.9% 50 ML ONE (19:18)
[2018-09-10] MEDS ORDERED: Promethazine HCl 25 MG/ML VIAL SLOW IVP PRN (22:34)
[2018-09-10] MEDS ORDERED: Promethazine HCl 25 MG/ML VIAL IM PRN ×2 (22:34→23:17)
[2018-09-10] MEDS ORDERED: HYDROmorphone 2 MG/ML VIAL SLOW IVP PRN (22:34)
[2018-09-10] MEDS ORDERED: Ondansetron HCl/PF 4 MG/2 ML Vial IVP PRN (22:34)
[2018-09-11] MEDS ORDERED: Acetaminophen 500 MG TAB PO SCH (00:15)
[2018-09-11] MEDS ORDERED: Gabapentin 300 MG CAP PO SCH (00:15)
[2018-09-11] MEDS ORDERED: traMADol HCl 50 MG TAB PO SCH (00:15)
[2018-09-11] MEDS ORDERED: Ascorbic Acid 500 mg Chewable Tablet PO SCH (00:15)
[2018-09-11] MEDS: Piperacillin/Tazobactam 4.5 GM in Sodium Chloride 0.9% 100 ML IVPB SCH ×5 (00:20→17:32)
[2018-09-11] MEDS: Senokot 8.6 MG TAB PO SCH ×3 (00:20→21:58)
[2018-09-11] MEDS: Dextrose 5 %-0.45 % NaCl 1,000 ML IV SCH ×4 (00:21→22:32)
[2018-09-11] MEDS: HYDROmorphone 10 mg/100 ml CADD IVPB PRN (00:27)
[2018-09-11] MEDS: Ascorbic Acid 500 mg Chewable Tablet PO SCH ×3 (00:56→21:58)
[2018-09-11] MEDS: Acetaminophen 500 MG TAB PO SCH ×4 (00:56→17:31)
[2018-09-11] MEDS: Gabapentin 300 MG CAP PO SCH ×4 (00:56→21:58)
[2018-09-11] MEDS: traMADol HCl 50 MG TAB PO SCH ×4 (00:56→17:31)
[2018-09-11 01:22] LABS: #Eosinphils 0.1 thou/uL (0.0-0.7); #Lymphocytes 1.3 thou/uL (1.20-3.40); #Monocytes 0.4 thou/uL (0.11-0.59); #Neutrophils 8.3 thou/uL (1.40-6.50); %Basophils 0.3 % (0.0-1.0); %Eosinophils 0.7 % (0.0-10.0); %Lymphocytes 12.5 % (21.0-51.0); %Monocytes 3.6 % (0.0-10.0); %Neutrophils 82.9 % (42.0-75.0); Hemoglobin 8.3 g/dL (12.0-16.0); Mean Corpuscular HGB CONC 33.9 g/dL (32.0-36.0); Mean Corpuscular Hemoglobin 31.5 pg (27.0-31.0); Mean Corpuscular Volume 92.9 fL (78.0-98.0); Mean Platelet Volume 8.4 fL (7.4-10.4); Platelet Count 120 thou/uL (130-400); RBC Distribution Width 12.6 % (11.5-14.5); Red Blood Cell (RBC) Count 2.64 mill/uL (4.20-5.40)
[2018-09-11 01:52] LABS: Anion Gap 9 mmol/L (10-20); BUN (Urea Nitrogen) 9 mg/dL (7.0-18.7); Calc. Creatinine Clearance 119 mL/min (70-130); Calcium 7.6 mg/dL (7.8-10.44); Carbon Dioxide 23 mmol/L (22-29); Chloride 106 mmol/L (98-107); Estimated GFR-MDRD Greater than 90; Glucose 98 mg/dL (70-105); Magnesium 1.3 mg/dL (1.6-2.6); Phosphorus 2.6 mg/dL (2.3-4.7); Potassium 4.3 mmol/L (3.5-5.1); Sodium 134 mmol/L (136-145)
[2018-09-11] MEDS: Ondansetron PF 4 MG/2 ML Vial IVP PRN (04:00)
[2018-09-11] MEDS: Insulin Regular 300 UNITS/3 ML VIAL SC PRN (06:12)
[2018-09-11] MEDS: Magnesium Oxide 400 MG TAB PO SCH ×2 (08:46→21:58)
[2018-09-11] MEDS: Zinc Sulfate 220 MG CAP PO SCH (08:46)
[2018-09-11] MEDS: Ferrous Sulfate 325 MG TAB PO SCH ×2 (08:46→16:41)
[2018-09-11] MEDS: Enoxaparin Sodium 40 MG/0.4 ML SYRINGE SC SCH (08:46)
[2018-09-11] MEDS: Folic Acid 1 MG TAB PO SCH (08:47)
[2018-09-11] MEDS: Polyethylene Glycol 3350 17 GM Packet PO SCH (09:11)
--- NOTE | 2018-09-11 14:09 | PRG ---
DATE OF SERVICE: 09/11/2018 SUBJECTIVE: The patient is currently on the surgical floor. She is hospital day #4 status post mult iple bites from a pack of dogs. She underwent another orthopedic procedure yesterday, which she did well. This morning, her pain is controlled on SUPERVISOR BODY ASSEMBLY, which is planned to be discontinued today. She i s tolerating a diet. She has been working with physical and occupational therapy. PHYSICAL EXAMINATION: VITAL SIGNS: Temperature is 98.4, heart rate 100, blood pressure 125/72, respirations 20, oxygen sat uration is 99% on room air. GENERAL: The patient is resting comfortably in bed. She is awake, alert, and oriented x3. [place] coma scale is 15. HEENT: Unchanged. LUNGS: Clear to auscultation with good inspiratory and expiratory effort. HEART: Regular rate and rhythm. ABDOMEN: Soft, flat, nontender with active bowel sounds. EXTREMITIES: Postop dressings are clean, dry, and intact. The patient is neurovascularly intact x4. LABORATORY DATA: White blood cell count 10.0, hemoglobin 8.3, hematocrit 24.5, platelets 120. Sodiu m 134, potassium 4.3, chloride 106, CO2 23, BUN 9, creatinine 0.68, glucose 98, magnesium 1.3, phosph orus 2.6. CK 4850. IMAGING: There are no radiographs to review this morning. ASSESSMENT AND PLAN: 1. Status post multiple dog bites. 2. Acute kidney injury, resolved. 3. Acute lactic acidosis, resolved. 4. Hypomagnesemia. Plan will be to replace electrolytes. Continue supportive care, physical and occupational therapy an d start discussing discharge planning with the patient's family and case fitter.
[2018-09-11] MEDS ORDERED: Famotidine 20 MG TAB PO SCH ×2 (17:00→21:00)
[2018-09-11] MEDS: Ibuprofen 800 MG TAB PO PRN (21:58)
--- NOTE | 2018-09-11 23:33 | EKG ---
Test Reason : Blood Pressure : / mmHG Vent. Rate : 114 BPM Atrial Rate : 114 BPM P-R Int : 120 ms QRS Dur : 102 ms QT Int : 344 ms P-R-T Axes : 073 091 064 degrees QTc Int : 474 ms Sinus tachycardia Rightward axis Incomplete right bundle branch block Borderline ECG Confirmed by RADHA VALENTIN MD ([id number]), industrial editor MAURA KENNY ([id number] on 09/11/2018 11:33:33 PM Referred By: Confirmed By:RADHA VALENTIN MD
[2018-09-12] MEDS: Piperacillin/Tazobactam 4.5 GM in Sodium Chloride 0.9% 100 ML IVPB SCH ×4 (00:55→17:37)
[2018-09-12] MEDS: traMADol HCl 50 MG TAB PO SCH ×4 (00:55→17:37)
[2018-09-12] MEDS: Acetaminophen 500 MG TAB PO SCH ×4 (00:55→17:37)
[2018-09-12] MEDS: HYDROcodone/Acetaminophen 7.5/325 mg Tablet PO PRN ×4 (01:02→14:01)
[2018-09-12] MEDS: Ibuprofen 800 MG TAB PO PRN ×3 (06:58→20:36)
[2018-09-12] MEDS: Dextrose 5 %-0.45 % NaCl 1,000 ML IV SCH (08:32)
[2018-09-12] MEDS: Ascorbic Acid 500 mg Chewable Tablet PO SCH ×2 (09:31→20:37)
[2018-09-12] MEDS: Folic Acid 1 MG TAB PO SCH (09:31)
[2018-09-12] MEDS: Famotidine 20 MG TAB PO SCH ×2 (09:31→20:36)
[2018-09-12] MEDS: Zinc Sulfate 220 MG CAP PO SCH (09:31)
[2018-09-12] MEDS: Magnesium Oxide 400 MG TAB PO SCH ×2 (09:32→20:36)
[2018-09-12] MEDS: Gabapentin 300 MG CAP PO SCH ×3 (09:32→20:36)
[2018-09-12] MEDS: Ferrous Sulfate 325 MG TAB PO SCH ×2 (09:32→17:36)
[2018-09-12] MEDS: Enoxaparin Sodium 40 MG/0.4 ML SYRINGE SC SCH (09:33)
[2018-09-12] MEDS: Polyethylene Glycol 3350 17 GM Packet PO SCH (09:36)
[2018-09-12] MEDS: Senokot 8.6 MG TAB PO SCH ×2 (09:36→20:40)
--- NOTE | 2018-09-12 11:40 | PRG ---
DATE OF SERVICE: 09/12/2018 SUBJECTIVE: The patient is currently on the surgical floor. She is hospital day #5 status post mult iple bites from a pack of dogs. She is currently tolerating a diet. Her pain is controlled on p.o. pain medications. She is working with physical and occupational therapy and her bowel function has r eturned. We are currently waiting to ensure that she has all the appropriate equipment for safe disc harge home. PHYSICAL EXAMINATION: VITAL SIGNS: Temperature is 99.5, heart rate 102, blood pressure 138/77, respirations 20, oxygen sat uration 95% on room air. GENERAL: The patient is resting comfortably in bed. She is awake, alert, and oriented x3. [place] coma scale is 15. HEENT: Exam shows multiple superficial lacerations and abrasions without signs of infection. LUNGS: Clear to auscultation bilaterally with good inspiratory and expiratory effort. HEART: Regular rate and rhythm. ABDOMEN: Soft, flat, nontender with active bowel sounds. EXTREMITIES: Neurovascularly intact x4. All dressings are clean, dry, and intact. LABORATORY DATA: There are no labs this morning or radiographs to review. ASSESSMENT AND PLAN: 1. Status post multiple dog bites. 2. Acute kidney injury, resolved. 3. Acute lactic acidosis, resolved. Plan will be to continue supportive care and likely discharge home tomorrow. We will confer with Dr. Taylor that has no more procedures planned.
[2018-09-13] MEDS: Acetaminophen 500 MG TAB PO SCH ×5 (00:33→23:56)
[2018-09-13] MEDS: traMADol HCl 50 MG TAB PO SCH ×5 (00:33→23:56)
[2018-09-13] MEDS: Piperacillin/Tazobactam 4.5 GM in Sodium Chloride 0.9% 100 ML IVPB SCH ×5 (00:34→23:57)
[2018-09-13] MEDS: Dextrose 5 %-0.45 % NaCl 1,000 ML IV SCH ×3 (01:05→14:34)
[2018-09-13] MEDS: Ondansetron PF 4 MG/2 ML Vial IVP PRN ×4 (06:51→23:58)
[2018-09-13 07:26] LABS: Hemoglobin 7.6 g/dL (12.0-16.0); Mean Corpuscular HGB CONC 33.3 g/dL (32.0-36.0); Mean Corpuscular Hemoglobin 31.1 pg (27.0-31.0); Mean Corpuscular Volume 93.3 fL (78.0-98.0); Mean Platelet Volume 7.8 fL (7.4-10.4); Platelet Count 174 thou/uL (130-400); RBC Distribution Width 13.1 % (11.5-14.5); Red Blood Cell (RBC) Count 2.45 mill/uL (4.20-5.40); White Blood Cell (WBC) Count 9.7 thou/uL (4.8-10.8)
[2018-09-13 07:29] LABS: Anion Gap 7 mmol/L (10-20); BUN (Urea Nitrogen) 8 mg/dL (7.0-18.7); Calc. Creatinine Clearance 135 mL/min (70-130); Calcium 7.9 mg/dL (7.8-10.44); Carbon Dioxide 27 mmol/L (22-29); Chloride 107 mmol/L (98-107); Estimated GFR-MDRD Greater than 90; Glucose 112 mg/dL (70-105); Magnesium 1.4 mg/dL (1.6-2.6); Phosphorus 3.4 mg/dL (2.3-4.7); Potassium 3.7 mmol/L (3.5-5.1); Sodium 137 mmol/L (136-145)
[2018-09-13 08:11] LABS: Band 10 % (5-11); Lymphocytes 21 % (21-51); MDiff Complete? YES; Monocytes 7 % (0-10); Myelocyte 1 % (0-0); Neutrophil 61 % (42-75); PLT Morphology Comment Appears Adequate; Toxic Granulation SLIGHT
[2018-09-13] MEDS: Enoxaparin Sodium 40 MG/0.4 ML SYRINGE SC SCH (08:42)
[2018-09-13] MEDS: Polyethylene Glycol 3350 17 GM Packet PO SCH (08:47)
--- NOTE | 2018-09-13 08:55 | OP ---
PREOPERATIVE DIAGNOSIS: Right open wound in forearm and arm, complex with exposed bone (radius proxi mal third to midshaft and tendon forearm. POSTOPERATIVE DIAGNOSIS: Right open wound in forearm and arm, complex with exposed bone (radius prox imal third to midshaft and tendon forearm. PROCEDURES PERFORMED: 1. Fasciocutaneous flap, 12 x 4.5 cm right forearm rotated from the dorsal forearm to cover the radi us. 2. Closure to 69 cm of wound, left forearm. Two-layer technique. 3. A 30 x 5 cm (150 cm square) split-thickness skin graft harvested from the ipsilateral leg using p ower dermatome set at 0.20 thickness and meshed 1-1.5. 4. Debridement of wound down to, but not including bone, [address] level with no gross infection to incl ude debridement of the wound edges to 1-2 mm circumferentially at the entire open wound surface. ESTIMATED BLOOD LOSS: 150 mL. INTRAOPERATIVE TRANSFUSION: Two units of packed red blood cells because hemoglobin and hematocrit wa s 7 and 21 respectively and blood loss was anticipated with a wide debridement. OTHER FINDINGS: No gross infection, only minimal superficial fat necrosis and no muscle necrosis see n or further and it was intact Doppler radial pulse. After all procedures were finished, dressing ap plied and a skin graft applied. DESCRIPTION OF PROCEDURE: After successful general endotracheal anesthesia, limb was prepped and jaspal ped. The patient then had the wound and had the right leg as well prepped and draped along the right upper extremity with the chest wall free. The patient then had the wound inspected, and a debrideme nt began circumferentially with all wound edges using a combination of 11 blade knife and tenotomy sc issors, we dissected all layers of muscle. There was only a small amount of denuded muscle over the origin of the flexor pronator muscles where those had been lost. We then finished the debridement us ing a combination of curette, tenotomy scissors, 11 blade, 15 blade knife. Multiple times of pickups for instrumentations; it was excisional technique; we also had a depth down to, but not including th e bone and there was no gross infection. As this was complete, we then irrigated all wounds to include the dorsal radial mid and proximal fore arm wounds with 5 liters of normal saline total with antibiotics inside via Pulsavac irrigation. The n, we began to evaluate the wounds including the arm wounds, which were irrigated as well and debride d with a curette down to, but not including fascia, muscle in an excisional technique. We then finis hed our power irrigation, inspected the wounds, and prepared for closure. It was obvious that a 10 c m segment of the radius was completely uncovered and there was an area of dorsal skin had excellent c irculation, so we created a fasciocutaneous flap, 12 x 4.5 cm that was distally based that rotated ov er the radial shaft to cover it. Then, we began our closure using 2 layers with interrupted 4-0 Mcminn cryl followed by nylon 3-0 over the arm and 4-0 on the forearm. Once this was done, between the arm and upper arm and elbow and forearm wounds, we had closed of total of 69 cm of incision using this te chnique. We then noticed that we had no further paratenon exposure, the muscle that was exposed was all viable red, pink bleeding with the dissection, and so we decided to then harvest a split-thickness skin gra ft with 0.20 thickness, bolster this with mineral oil-soaked ABDs over to addition of bacitracin, Ada ptic and then cover the donor site with thrombin-soaked Gelfoam and plastic Tegaderm under Rodriguez wraps. Thus, this exact technique was accomplished, sutured to the wound with niko, we avoided niko over the radial artery which was in the middle of the primary palmar, proximal elbow wound. Once we have done this, we bolstered it first with bacitracin, Adaptic to help it stick to the underlying mus armida and then placing mineral oil-soaked ABDs over all the total of 150 square cm of skin graft. Then , we finished the closures proximally, then we gave the thrombin-soaked Gelfoam to the other Tegaderm to the donor site of the right ipsilateral thigh and we placed 4 x 4s and Kerlix along with a 4 inch Rodriguez wrap and a splint at this time to protect the repair at the elbow level. The patient then had the final dressing been applied over the donor site, which would be Tegaderm over the thrombin-s oaked Gelfoam followed by Kerlix and multiple 6 inch Rodriguez wraps. She left the operating room initiall y with no evidence of anesthetic or operative complication.
[2018-09-13] MEDS: Ferrous Sulfate 325 MG TAB PO SCH ×2 (09:26→16:31)
[2018-09-13] MEDS: Ascorbic Acid 500 mg Chewable Tablet PO SCH ×2 (09:26→21:10)
[2018-09-13] MEDS: Zinc Sulfate 220 MG CAP PO SCH (09:26)
[2018-09-13] MEDS: Senokot 8.6 MG TAB PO SCH ×2 (09:26→21:10)
[2018-09-13] MEDS: Gabapentin 300 MG CAP PO SCH ×3 (09:26→21:10)
[2018-09-13] MEDS: Magnesium Oxide 400 MG TAB PO SCH ×2 (09:26→21:10)
[2018-09-13] MEDS: Famotidine 20 MG TAB PO SCH ×2 (09:26→21:10)
[2018-09-13] MEDS: Folic Acid 1 MG TAB PO SCH (09:26)
[2018-09-13] MEDS: Ibuprofen 800 MG TAB PO PRN ×3 (09:29→23:56)
--- NOTE | 2018-09-13 13:10 | PRG ---
DATE OF SERVICE: 09/13/2018 SUBJECTIVE: This is a 33-year-old woman who is post-injury day #6 now status post multiple dog bite wounds. The patient is awake and alert today. She reports adequate pain control. She complains, ho wever of left upper extremity swelling and a pressure type feeling. She denies any fevers or chills. OBJECTIVE: VITAL SIGNS: Today includes blood pressure 152/85, pulse is 80, respiratory rate is 16, temperature is 98.3 degrees Fahrenheit. Oxygen saturation is 96% on room air. HEENT: Pupils are equal, round, reactive to light and accommodation. HEART: Reveals regular rate and rhythm, no murmurs or gallops auscultated. CHEST: Clear to auscultation bilaterally. Breathing is regular and unlabored. ABDOMEN: Soft, nontender, nondistended. EXTREMITIES: Reveals 2+ radial and pedal pulses bilaterally. Left upper extremity is markedly edema tous. She has no neurological deficits present. MUSCULOSKELETAL: Reveals 5/5 muscle strength in bilateral lower extremities. Range of motion about the bilateral upper extremity is restricted due to painful deformities. NEUROLOGIC: Reveals no focal deficits present. LABORATORY DATA: Today includes a CBC with 9700 white blood cells, hemoglobin and hematocrit are 7.6 and 22.9 respectively. Platelet count is 174,000. Metabolic profile: Sodium 137, potassium 3.7, c hloride is 107, bicarbonate is 27, BUN 8, creatinine 0.65, glucose is 112. Magnesium is 1.4. Phosphorus is 3.4. IMPRESSION: 1. Post-injury day #6 status post multiple dog bite wounds. 2. Left upper extremity edema, rule out a deep venous thrombosis. 3. Acute hypokalemia. 4. Acute hypomagnesemia. 5. Acute blood loss anemia. PLAN: 1. Correct abnormal electrolytes. 2. We will obtain a venogram to rule out a DVT of the left upper extremity. 3. The left upper extremity will be elevated. 4. Activity will be increased per physical and occupational therapy. The above findings and plan discussed with the patient who indicates understanding of the information given. I answered her questions.
--- NOTE | 2018-09-13 15:53 | ULT ---
VENOUS DUPLEX SONOGRAM LEFT UPPER EXTREMITY: HISTORY: Left arm pain and edema. TECHNIQUE: The left internal jugular and subclavian veins were evaluated, along with the axillary, brachial, cep halic, and basilic veins. FINDINGS: Good color and spectral Doppler flow. IMPRESSION: No sonographic evidence of deep venous thrombosis within the left upper extremity. POS: WILBER
[2018-09-13] MEDS: Zolpidem Tartrate 5 MG TAB PO PRN (21:10)
[2018-09-14] MEDS: Dextrose 5 %-0.45 % NaCl 1,000 ML IV SCH ×3 (00:05→14:25)
[2018-09-14] MEDS: traMADol HCl 50 MG TAB PO SCH ×4 (06:06→23:14)
[2018-09-14] MEDS: Acetaminophen 500 MG TAB PO SCH ×4 (06:08→23:16)
[2018-09-14] MEDS: Ondansetron PF 4 MG/2 ML Vial IVP PRN (06:53)
[2018-09-14] MEDS: Famotidine 20 MG TAB PO SCH ×2 (08:13→21:37)
[2018-09-14] MEDS: Gabapentin 300 MG CAP PO SCH ×3 (08:14→21:37)
[2018-09-14] MEDS: Ibuprofen 800 MG TAB PO PRN ×2 (08:14→16:25)
[2018-09-14] MEDS: Zinc Sulfate 220 MG CAP PO SCH (08:15)
[2018-09-14] MEDS: Magnesium Oxide 400 MG TAB PO SCH ×2 (08:15→21:37)
[2018-09-14] MEDS: Ascorbic Acid 500 mg Chewable Tablet PO SCH ×2 (08:15→21:37)
[2018-09-14] MEDS: Ferrous Sulfate 325 MG TAB PO SCH ×2 (08:16→16:24)
[2018-09-14] MEDS: Folic Acid 1 MG TAB PO SCH (08:16)
[2018-09-14] MEDS: Enoxaparin Sodium 40 MG/0.4 ML SYRINGE SC SCH (08:18)
[2018-09-14] MEDS: Polyethylene Glycol 3350 17 GM Packet PO SCH (08:18)
[2018-09-14] MEDS: Senokot 8.6 MG TAB PO SCH ×2 (08:18→21:38)
[2018-09-14] MEDS ORDERED: Morphine 4 MG/ML VIAL ONE (11:59)
[2018-09-14] MEDS: Ondansetron ODT 4 MG TAB PO PRN (12:32)
--- NOTE | 2018-09-14 18:44 | PRG ---
DATE OF SERVICE: 09/14/2018 SUBJECTIVE: Ms. Pina is a 33-year-old woman who is post injury day number 7 status post multiple dog bite wounds. The patient reports adequate pain control today. The left upper extremity swelling is resolving. She continues to complain of residual right upper extremity pain. She is tolerating gen eral diet, having normal bowel and urinary function. OBJECTIVE: VITAL SIGNS: Today includes blood pressure 152/84, pulse 83, respirations 18, temperature 98.4 degre es Fahrenheit, oxygen saturation 95% on room air. HEART: Reveals regular rate and rhythm. No murmurs or gallops auscultated. CHEST: Clear to auscultation bilaterally. Breathing is regular and unlabored. ABDOMEN: Soft, nontender, nondistended. EXTREMITIES: Reveals 2+ radial and pedal pulses bilaterally. She has no ankle edema present. NEUROLOGIC: Reveals no focal deficits present. IMPRESSION AND PLAN: Post injury day number 7 status post multiple dog bite wounds. The patient is hemodynamically stable. The right upper extremity wound dressing will be changed today. I anticipat e discharge tomorrow. The patient indicates understanding of the information given. I answered her questions.
[2018-09-14] MEDS ORDERED: HYDROcodone/Acetaminophen 7.5/325 mg Tablet PO SCH (21:15)
[2018-09-14] MEDS: Zolpidem Tartrate 5 MG TAB PO PRN (21:37)
[2018-09-15] MEDS: Dextrose 5 %-0.45 % NaCl 1,000 ML IV SCH ×3 (01:41→15:35)
[2018-09-15] MEDS: Ibuprofen 800 MG TAB PO PRN ×2 (03:28→11:35)
[2018-09-15] MEDS: Acetaminophen 500 MG TAB PO SCH ×3 (05:43→17:25)
[2018-09-15] MEDS: traMADol HCl 50 MG TAB PO SCH ×3 (05:43→17:26)
[2018-09-15] MEDS: Enoxaparin Sodium 40 MG/0.4 ML SYRINGE SC SCH (08:50)
[2018-09-15] MEDS: Famotidine 20 MG TAB PO SCH (08:51)
[2018-09-15] MEDS: Zinc Sulfate 220 MG CAP PO SCH (08:51)
[2018-09-15] MEDS: Ascorbic Acid 500 mg Chewable Tablet PO SCH (08:51)
[2018-09-15] MEDS: Folic Acid 1 MG TAB PO SCH (08:52)
[2018-09-15] MEDS: Gabapentin 300 MG CAP PO SCH ×2 (08:52→15:38)
[2018-09-15] MEDS: Ferrous Sulfate 325 MG TAB PO SCH ×2 (08:52→17:25)
[2018-09-15] MEDS: Magnesium Oxide 400 MG TAB PO SCH (08:52)
[2018-09-15] MEDS: Polyethylene Glycol 3350 17 GM Packet PO SCH (08:58)
[2018-09-15] MEDS: Senokot 8.6 MG TAB PO SCH (08:58)
[2018-09-15] MEDS: Ondansetron ODT 4 MG TAB PO PRN (10:00)
[2018-09-15 12:31] VITALS: BMI 25.2
[2018-09-15 15:39] VITALS: BP 155/77; TEMP 97.8
--- NOTE | 2018-09-16 09:12 | DIS-2 ---
DATE OF ADMISSION: 09/07/2018 DATE OF DISCHARGE: 09/15/2018 RESIDENT: Lorena Bobby MD SUPERVISING ATTENDING: Dr. Siegel. CONSULTATIONS: Case management, PT/OT, wound care, hand surgery. PROCEDURES: 1. On 09/07, right antecubital exploration of brachial artery, irrigation and removal of devitalized tissue in the right forearm/arm, closure of multiple lacerations on face, bilateral legs, and left arm. Debridement and washout of wounds with pulse irrigation. 2. On 09/08, Doppler pulse exam and debridement of skin, muscle, fascia, fat, and dressing change. 3. On 09/10/2018, fasciocutaneous flap procedure and closure of left forearm wound using skin graft from its lateral leg. PRIMARY DIAGNOSIS: Multiple traumatic injuries from dog bite. SECONDARY DIAGNOSIS: None. DISCHARGE MEDICATIONS: 1. Ultram 100 mg every 6 hours. 2. Tylenol Extra-Strength 1000 mg oral every 6 hours as needed. 3. Gabapentin 300 mg oral 3 times daily. 4. Ibuprofen 800 mg oral every 8 hours as needed. DISCONTINUED MEDICATIONS: None. HISTORY OF PRESENT ILLNESS/HOSPITAL COURSE: This is a 33-year-old female who was mauled by several dogs. Patient suffered multiple complex lacerations and puncture wounds. Patient was a level 1 trauma. Patient was hypotensive and tachycardic on arrival. Patient was transfused blood products at that time. Patient was taken to the OR by Hand Surgery as well as CV Surgery due to her injury. Washout, debridement, and closure of the wounds were performed at that time. Patient was started on broad-spectrum antibiotic coverage. Patient found to be in severe lactic acidosis and was given aggressive fluid resuscitation. Patient is positive UDS for methamphetamines. Patient was weaned and successfully extubated on the morning of 09/08/2018. Patient went to the OR again with Dr. Taylor on 09/08/2018, where Doppler pulse exam and debridement of skin, muscle , fascia, and fat was performed as well as a dressing change. Patient again went to the OR on 09/10/2018 for fasciocutaneous flap procedure and closure of left forearm wound using skin graft from its lateral leg. Patient noted swelling of right upper extremity on 09/13/18. An ultrasound was negative for DVT on 09/13/2018 of that extremity. Patient's pain was controlled at first with [employer] pump and then to oral analgesics by the end of her stay. Postoperatively, patient participated in physical therapy and occupational therapy. Electrolytes were corrected as needed on her stay. On the day of discharge, patient was seen and examined by Dr. Siegel at the bedside. Plan was discussed with the patient who acknowledges and understands the plan. The patient's niko and stitches removed on day of discharge. The patient will have close followup. DISPOSITION: Stable. DISCHARGE INSTRUCTIONS: 1. Location: Home. 2. Diet: Regular. 3. ACTIVITY: Activity limitations with Physical Therapy and Hand Surgery recommendations. 4. Follow up with Dr. Taylor within 1 week and PCP within 2 weeks. KEIKO
--- NOTE | 2018-09-17 18:08 | PQF ---
[facility] [id number] CLINICAL DOCUMENTATION CLARIFICATION FORM: POST DISCHARGE Addendum to original discharge summary date: ____ Late entry note date: __ DATE: 09/17/18 ATTN: Please exercise your independent, professional judgment in responding to the clarification form. Clinical indicators are provided on the bottom of this form for your review Please check appropriate box(es): [ ] Sepsis due to: (Pna, UTI, gangrenous gall bladder, etc.) Due to: [ ] Device (please specify) [ ] Implant [ ] Graft [ ] Infusion [ ] SIRS due to non-infectious process (please specify etiology) [ ] with organ dysfunction [ ] without organ dysfunction [ ] Severe sepsis with acute organ dysfunction of: (Examples: respiratory failure, encephalopathy, acute kidney failure, other) [ x] Septic Shock [ ] Localized infection without sepsis [ ] Other diagnosis [ ] Unable to determine In addition, please specify: Present on Admission (POA): [ x] Yes [ ] No [ ] Unable to determine For continuity of documentation, please document condition throughout progress notes and discharge summary. Thank You. CLINICAL INDICATORS - SIGNS / SYMPTOMS / LABS Respiratory rate >20/min, Hypoxemia, WBC count (>12,000/mm^4 or <4000/mm^3 or 10% neuts, 10% bands) RISK FACTORS Infection/Bacteremia Dog bite with open wound TREATMENTS: IV antibiotics - broad spectrum IV Fluids (This form is maintained as a part of the permanent medical record) 2014 [employer], [place]. All Rights Reserved Marck [email or web address] [phone] MTDD
[2018-09-21 14:19] LABS: Actual Bicarbonate (HCO3v) 26 mEq/L (22-28); Analyzer IN Cardio OR; Base Excess 1.4 mEq/L (-2.0 to +3.0); Calcium, Ionized 1.05 mmol/L (1.16-1.32); Chloride (ABG LAB) 104 mmol/L (98-106); Hemoglobin (Hb) 6.8 g/dL (11.7-15.5); Potassium - ABG Lab 4.11 mmol/L (3.70-5.30); Sodium 128.8 mmol/L (133-146); pH (venous) 7.43 (7.32-7.43)
== END 2018-09-15 18:43 | disposition home or self-care (01) | DRG 853 ==
LOC: ERS 16:29 → SDC/OP 18:14 → CCU 20:35 → SURG B 09-09 14:07
PROVIDERS: ADMIT Surgery; ATTEND Surgery
PROC: 0JX Subcutaneous Tissue and Fascia, Transfer (ICD-10-PCS; principal; 2018-09-07)
PROC: 0KB90ZZ Excision of Right Lower Arm and Wrist Muscle, Open Approach (ICD-10-PCS; 2018-09-07)
PROC: 0KD90ZZ Extraction of Right Lower Arm and Wrist Muscle, Open Approach (ICD-10-PCS; 2018-09-07)
PROC: 03JY0ZZ Inspection of Upper Artery, Open Approach (ICD-10-PCS; 2018-09-07)
PROC: 30233N1 Transfusion of Nonautologous Red Blood Cells into Peripheral Vein, Percutaneous Approach (ICD-10-PCS; 2018-09-07)
PROC: 5A1935Z Respiratory Ventilation, Less than 24 Consecutive Hours (ICD-10-PCS; 2018-09-07)
PROC: 0BH17EZ Insertion of Endotracheal Airway into Trachea, Via Natural or Artificial Opening (ICD-10-PCS; 2018-09-07)
DX: A41.9 Sepsis, unspecified organism (principal); R65.21 Severe sepsis with septic shock; J96.01 Acute respiratory failure with hypoxia; N17.9 Acute kidney failure, unspecified; E87.2 Acidosis; D62 Acute posthemorrhagic anemia; S51.851A Open bite of right forearm, initial encounter; I95.9 Hypotension, unspecified; F15.90 Other stimulant use, unspecified, uncomplicated; E87.5 Hyperkalemia; E83.42 Hypomagnesemia; T79.6XXA Traumatic ischemia of muscle, initial encounter; F12.90 Cannabis use, unspecified, uncomplicated; S11.91XA Laceration without foreign body of unspecified part of neck, initial encounter; S81.812A Laceration without foreign body, left lower leg, initial encounter; S81.811A Laceration without foreign body, right lower leg, initial encounter
CPT/HCPCS: 31500; 36415; 36416; 36430; 36556; 36680; 51702; 71045; 71260; 71275; 74174; 74177; 80048; 80053; 80306; 80307; 81003; 81025; 82533; 82550; 82553; 82805; 83605; 83735; 84100; 84484; 85007; 85025; 85027; 85610; 85730; 86850; 86900; 86901; 87040; 87070; 87103; 87205; 90471; 90715; 93005; 94002; 94003; 94640; 96365; 96375; 99292; G0390; G8978-GP-CJ; G8979-GP-CI; G8987-GO-CK; G8988-GO-CJ; J0153; J0690; J0702; J1200; J1644; J1650; J1815; J1885; J2001; J2060; J2250; J2270; J2405; J2440; J2543; J2550; J2704; J3010; J3475; J3490; J7050; J7070; J7620; P9016; P9048; Q0162; S0020